=== PATIENT | male | born 1960 | race Caucasian/White ===

== ENCOUNTER 2017-08-06 09:31 | Outpatient (CLI) | payer OTHER ==
--- NOTE | 2017-08-06 13:26 | RAD ---
CHEST PA AND LATERAL: HISTORY: A 57-year-old male with fever, cough, and flu-like symptoms. FINDINGS: Heart size is normal. The lungs are clear. No pneumonia, edema, or pleural effusion. IMPRESSION: No acute intrathoracic disease. No evidence for pneumonia. POS: [facility]
== END 2017-08-06 09:32 | disposition home or self-care (01) ==
LOC: MADRAD 09:31
PROVIDERS: ATTEND Family Medicine
DX: R68.89 Other general symptoms and signs (principal)
CPT/HCPCS: 71020

== ENCOUNTER 2018-05-27 09:44 | Outpatient (CLI) | payer BC ==
[2018-05-27 10:13] LABS: #Basophils 0.1 thou/uL (0.0-0.2); #Eosinphils 0.2 thou/uL (0.0-0.7); #Lymphocytes 1.1 thou/uL (1.20-3.40); #Monocytes 0.5 thou/uL (0.11-0.59); #Neutrophils 2.8 thou/uL (1.40-6.50); %Basophils 1.9 % (0.0-1.0); %Eosinophils 4.6 % (0.0-10.0); %Lymphocytes 22.9 % (21.0-51.0); %Monocytes 10.6 % (0.0-10.0); Hemoglobin 14.4 g/dL (14.0-18.0); Mean Corpuscular HGB CONC 34.9 g/dL (32.0-36.0); Mean Corpuscular Hemoglobin 35.2 pg (27.0-31.0); Mean Corpuscular Volume 100.7 fL (78.0-98.0); Platelet Count 191 thou/uL (130-400); RBC Distribution Width 11.3 % (11.5-14.5); White Blood Cell (WBC) Count 4.6 thou/uL (4.8-10.8)
--- NOTE | 2018-05-27 10:35 | RAD ---
LEFT TIBIA FIBULA 2 VIEWS: HISTORY: Left leg pain. FINDINGS: There are no signs of fracture or dislocation. No old fractures were seen. IMPRESSION: Unremarkable left tibia/fibula. POS: [facility]
[2018-05-27 10:40] LABS: ALT (SGPT) 39 U/L (8-55); AST (SGOT) 35 U/L (5-34); Albumin 4.2 g/dL (3.5-5.0); Alkaline Phosphatase 44 U/L (40-150); Anion Gap 15 mmol/L (10-20); BUN (Urea Nitrogen) 6 mg/dL (8.4-25.7); Bilirubin, Total 0.5 mg/dL (0.2-1.2); Calc. Creatinine Clearance 0 mL/min (70-130); Calcium 9.2 mg/dL (7.8-10.44); Carbon Dioxide 23 mmol/L (22-29); Chloride 101 mmol/L (98-107); Cholesterol 176 mg/dl (< 200 Desired); Estimated GFR-MDRD Greater than 90; Globulin 2.4 g/dL (2.4-3.5); Glucose 72 mg/dL (70-105); HDL Cholesterol 90 mg/dL (>60 Neg Risk); LDL Cholesterol, Calculated 76 mg/dL; Potassium 5.1 mmol/L (3.5-5.1); Protein, Total 6.6 g/dL (6.0-8.3); Sodium 134 mmol/L (136-145); Triglycerides 51 mg/dL (Less than 150)
== END 2018-05-27 09:45 | disposition home or self-care (01) ==
LOC: MADLAB 09:44
PROVIDERS: ATTEND Family Medicine
DX: M79.605 Pain in left leg (principal); I10 Essential (primary) hypertension
CPT/HCPCS: 36415; 80053; 80061; 85025

== ENCOUNTER 2019-01-24 14:24 | Outpatient (CLI) | payer BC ==
--- NOTE | 2019-01-24 15:23 | RAD ---
Exam:Right and left hip 2 views HISTORY: Chronic left hip pain. COMPARISON: None FINDINGS: AP and frog-leg lateral views of the left and right hip demonstrates symmetric hip joint space. No er osive or destructive changes. IMPRESSION: No significant degenerative change.
--- NOTE | 2019-01-24 15:31 | RAD ---
LUMBAR SPINE TWO VIEWS: HISTORY: Low back pain. FINDINGS: Multilevel degenerative changes are present. No acute fracture, subluxation, or bony destruction. IMPRESSION: Lumbar spondylosis. POS: OFF
== END 2019-01-24 14:25 | disposition home or self-care (01) ==
LOC: MADRAD 14:24
PROVIDERS: ATTEND Family Medicine
DX: M25.551 Pain in right hip (principal); M25.552 Pain in left hip; M54.5 Low back pain; G89.29 Other chronic pain; M47.816 Spondylosis without myelopathy or radiculopathy, lumbar region
CPT/HCPCS: 72100; 72170; 73521